=== PATIENT | male | born 1990 | race Hispanic/Latino ===

== ENCOUNTER 2023-03-02 07:41 | Emergency (ER) | payer OTHER ==
[~2023-03-02] VITALS: Ht 175.3 cm; Wt 86.2 kg
[2023-03-02] MEDS ORDERED: DIAZEPAM 5 MG/ML 2 ML SYG IVP ONE (08:30)
[2023-03-02] MEDS ORDERED: KETOROLAC 30MG VIAL (30MG/ML) IVP ONE (08:30)
[2023-03-02] MEDS ORDERED: METOCLOPRAMIDE 10 MG/2 ML VIAL IVP ONE (08:30)
[2023-03-02] MEDS ORDERED: FAMOTIDINE 20MG VIAL IV ONE (08:30)
[2023-03-02] MEDS ORDERED: LACTATED RINGERS 1000ML 1,000 ML IV ONE (08:30)
[2023-03-02 09:37] VITALS: BP 125/86; PULSE 72; RESP 20; O2SAT 99
[2023-03-02] MEDS ORDERED: PREG25 PO (09:39)
[2023-03-02] MEDS ORDERED: MELO-106 PO (09:39)
[2023-03-02] MEDS ORDERED: CYCL10TA16 PO (09:39)
== END 2023-03-02 10:05 | disposition home or self-care (01) ==
LOC: EDH 07:41
DX: M54.40 Lumbago with sciatica, unspecified side (principal); Z98.890 Other specified postprocedural states
CPT/HCPCS: 99284; 96374; 96375; 96361; J7120; J3490; J3360; J1885; J2765